=== PATIENT | male | born 1990 | race Caucasian/White ===

== ENCOUNTER 2021-09-21 17:34 | Inpatient (IN) | payer OTHER ==
[~2021-09-21] VITALS: Ht 172.7 cm; Wt 178.7 kg
[2021-09-21] MEDS ORDERED: SODIUM CHLORIDE 0.9% 1,000 ML IV ONE (21:00)
[2021-09-21 21:22] LABS: HEMATOCRIT. 30.4 % (42.0-52.0); HEMOGLOBIN. 10.2 g/dL (14.0-18.0); MEAN CORPUSCULAR HEMOGLOBIN 27.6 pg (28.0-32.0); MEAN PLATELET VOLUME 6.6 fl (7.4-10.4); PLATELET 437 x1000/uL (130-400); RED CELL DISTRIBUTION WIDTH 14.3 % (11.6-14.6)
[2021-09-21 21:27] LABS: CHLORIDE 98 mEq/L (98-107)
[2021-09-21 21:38] LABS: CREATINE KINASE MB FRACTION < 1.0 ng/mL (0.5-3.6)
[2021-09-21 21:43] LABS: PLATELET ESTIMATE INCREASED
[2021-09-21] MEDS ORDERED: CEFTRIAXONE 1 G PREMIX 50 ML IV ONE (22:15)
[2021-09-22] MEDS ORDERED: HALOPERIDOL LACTATE 5MG/ML VIAL IM ONE (03:30)
[2021-09-22] MEDS ORDERED: IOHEXOL-350 100 ML BOTTLE ONE (05:28)
[2021-09-22 05:42] LABS: CLARITY URINE CLOUDY (CLEAR); COLOR URINE DARK YELLOW (YELLOW); KETONES URINE NEGATIVE (NEGATIVE); LEUKOCYTE ESTERASE URINE 2+ (NEGATIVE); NITRITE URINE NEGATIVE (NEGATIVE); OCCULT BLOOD URINE TRACE (NEGATIVE); PH URINE 5.5 (4.5-8.0); PROTEIN URINE 1+ (NEGATIVE); SPECIFIC GRAVITY URINE 1.018 (1.005-1.030)
[2021-09-22 06:15] VITALS: BP_SYST 148; BP_SYST 153; BP_DIAS 76; BP_DIAS 90
[2021-09-22 08:00] VITALS: BP 120/63
[2021-09-22] MEDS ORDERED: POTASSIUM CHLORIDE 20MEQ TABLET SR PO SCH (08:00)
[2021-09-22] MEDS ORDERED: PIPERACILLIN/TAZOBACTAM 3.375 G in DEXTROSE 5% WATER 50 ML IV SCH (10:00)
[2021-09-22] MEDS ORDERED: INFLUENZA VACCINE 05/PF 0.5 ML SYRINGE IM ONE (11:00)
[2021-09-22] MEDS ORDERED: VANCOMYCIN 2,000 MG in DEXT 5% WATER 500 ML IV SCH (11:00)
[2021-09-22 12:00] VITALS: BP 127/79
[2021-09-22] MEDS ORDERED: PNEUMOCOCCAL 23-VAL P-SAC VAC 0.5 ML IM ONE (12:00)
[2021-09-22] MEDS: PIPERACILLIN/TAZOBACTAM 3.375 G in DEXTROSE 5% WATER 50 ML IV SCH ×2 (13:51→22:00)
[2021-09-22 16:00] VITALS: BP 108/66
[2021-09-22] MEDS: VANCOMYCIN 1250MG in DEXTROSE 5% WATER 250ML IV SCH (18:36)
[2021-09-22 20:29] LABS: INR 1.2; PROTHROMBIN TIME 12.9 sec (9.6-11.0)
[2021-09-22 20:33] VITALS: BP 139/81
[2021-09-22] MEDS ORDERED: ACETAMINOPHEN 325MG TABLET PO PRN (21:00)
[2021-09-22] MEDS: ENOXAPARIN 40MG/0.4ML SYR SUBCUT SCH (21:00)
[2021-09-23] VITALS (7 sets, daily range): BP systolic 105–129; BP diastolic 57–101
[2021-09-23] MEDS ORDERED: VANCOMYCIN 1G PREMIX 200 ML IV SCH (02:00)
[2021-09-23] MEDS: VANCOMYCIN 1250MG in DEXTROSE 5% WATER 250ML IV SCH ×3 (02:00→18:41)
[2021-09-23] MEDS: PIPERACILLIN/TAZOBACTAM 3.375 G in DEXTROSE 5% WATER 50 ML IV SCH ×3 (06:42→20:34)
[2021-09-23 08:15] LABS: HEMATOCRIT. 29.1 % (42.0-52.0); HEMOGLOBIN. 9.7 g/dL (14.0-18.0); MEAN CORPUSCULAR HEMOGLOBIN 27.4 pg (28.0-32.0); MEAN PLATELET VOLUME 6.7 fl (7.4-10.4); PLATELET 411 x1000/uL (130-400); RED BLOOD CELL COUNT 3.55 mill/uL (4.7-6.1); RED CELL DISTRIBUTION WIDTH 14.6 % (11.6-14.6)
[2021-09-23 08:53] LABS: CHLORIDE 101 mEq/L (98-107)
[2021-09-23] MEDS: ENOXAPARIN 40MG/0.4ML SYR SUBCUT SCH ×2 (09:00→20:34)
[2021-09-23] MEDS ORDERED: TEMAZEPAM 15MG CAPSULE PO PRN (09:30)
[2021-09-23] MEDS ORDERED: PROPOFOL 200MG/20ML VIAL IV ONE (10:06)
[2021-09-23] MEDS ORDERED: FENTANYL CITRATE/PF 50MCG/ML 2ML VIAL ONE (10:06)
[2021-09-23] MEDS ORDERED: MIDAZOLAM HCL 2 MG/2 ML VIAL ONE (10:07)
[2021-09-23] MEDS ORDERED: LIDOCAINE HCL/EPINEPHRINE 1%-EPI 1:100,000 30 ML VIAL INFIL ONE (10:11)
[2021-09-23] MEDS ORDERED: SIMETHICONE/SOD BICARB/CIT AC 1 EACH GRAN.EF.PK ONE (10:11)
[2021-09-23] MEDS ORDERED: SODIUM BICARBONATE 4% (2.4MEQ) 5ML VIAL IV ONE (10:12)
[2021-09-23] MEDS ORDERED: LIDOCAINE HCL 1% 30ML VIAL (10MG/ML) ONE (10:17)
[2021-09-23] MEDS ORDERED: DEXAMETHASONE 4MG/ML 1ML VIAL ONE (10:34)
[2021-09-23] MEDS ORDERED: ONDANSETRON HCL 4MG/2ML INJ ONE (10:34)
[2021-09-23] MEDS: FLUOXETINE HCL 10 MG CAPSULE PO SCH (11:00)
[2021-09-23] MEDS ORDERED: POTASSIUM CHLORIDE 20MEQ TABLET SR PO NR (12:30)
[2021-09-23 13:28] LABS: PLATELET ESTIMATE SLIGHTLY INCREASED
[2021-09-23] MEDS: RISPERIDONE 1MG TABLET PO SCH (20:34)
[2021-09-24] VITALS: BP 113/69
[2021-09-24 04:00] VITALS: BP 109/65
[2021-09-24] MEDS: VANCOMYCIN 1250MG in DEXTROSE 5% WATER 250ML IV SCH (06:39)
[2021-09-24] MEDS: PIPERACILLIN/TAZOBACTAM 3.375 G in DEXTROSE 5% WATER 50 ML IV SCH ×3 (06:39→22:47)
[2021-09-24 08:00] VITALS: BP 134/71
[2021-09-24 08:28] LABS: BASOPHILS % 0.5 % (0.0-2.0); EOSINOPHILS % 0.5 % (0.0-5.0); HEMATOCRIT. 27.9 % (42.0-52.0); HEMOGLOBIN. 9.4 g/dL (14.0-18.0); LYMPHOCYTES % 8.3 % (20.0-50.0); MEAN CORPUSCULAR HEMOGLOBIN 28.1 pg (28.0-32.0); MEAN CORPUSCULAR VOLUME 82.7 fL (80.0-94.0); MEAN PLATELET VOLUME 6.6 fl (7.4-10.4); NEUTROPHILS % 84.7 % (40.0-76.0); PLATELET 441 x1000/uL (130-400); RED BLOOD CELL COUNT 3.37 mill/uL (4.7-6.1); RED CELL DISTRIBUTION WIDTH 14.2 % (11.6-14.6)
[2021-09-24 08:29] LABS: CHLORIDE 101 mEq/L (98-107)
[2021-09-24] MEDS: RISPERIDONE 1MG TABLET PO SCH ×2 (09:57→21:06)
[2021-09-24] MEDS: FLUOXETINE HCL 10 MG CAPSULE PO SCH (09:57)
[2021-09-24] MEDS: ENOXAPARIN 40MG/0.4ML SYR SUBCUT SCH ×2 (09:58→21:06)
[2021-09-24] MEDS ORDERED: POTASSIUM CHLORIDE 20MEQ/PACKET PO NR (10:00)
[2021-09-24 12:00] VITALS: BP 136/76
[2021-09-24 16:00] VITALS: BP 151/71
[2021-09-24] MEDS: VANCOMYCIN 1GM PMX (XELLIA) 200 ML IV SCH (17:58)
[2021-09-24 20:00] VITALS: BP 124/69
[2021-09-25] VITALS (7 sets, daily range): BP systolic 108–137; BP diastolic 65–88
[2021-09-25] MEDS: VANCOMYCIN 1GM PMX (XELLIA) 200 ML IV SCH ×2 (01:05→09:13)
[2021-09-25] MEDS: PIPERACILLIN/TAZOBACTAM 3.375 G in DEXTROSE 5% WATER 50 ML IV SCH (06:09)
[2021-09-25] MEDS: ENOXAPARIN 40MG/0.4ML SYR SUBCUT SCH ×2 (09:12→21:13)
[2021-09-25] MEDS: FLUOXETINE HCL 10 MG CAPSULE PO SCH (09:12)
[2021-09-25] MEDS: RISPERIDONE 1MG TABLET PO SCH ×2 (09:12→21:12)
[2021-09-25] MEDS ORDERED: CEFTRIAXONE 2 G PREMIX 50 ML IV SCH (12:15)
[2021-09-25] MEDS ORDERED: LORAZEPAM 2MG/ML CPJ IV PRN (13:00)
[2021-09-25] MEDS: CEFTRIAXONE 2,000 MG in DEXTROSE 5% WATER 50 ML IV SCH (14:44)
[2021-09-26 04:00] VITALS: BP 123/82
[2021-09-26 07:06] LABS: HEMATOCRIT. 29.1 % (42.0-52.0); HEMOGLOBIN. 9.5 g/dL (14.0-18.0); MEAN CORPUSCULAR HEMOGLOBIN 27.3 pg (28.0-32.0); MEAN CORPUSCULAR VOLUME 83.3 fL (80.0-94.0); MEAN PLATELET VOLUME 6.5 fl (7.4-10.4); PLATELET 519 x1000/uL (130-400); RED BLOOD CELL COUNT 3.49 mill/uL (4.7-6.1); RED CELL DISTRIBUTION WIDTH 14.7 % (11.6-14.6)
[2021-09-26 08:00] VITALS: BP 114/75
[2021-09-26] MEDS: RISPERIDONE 1MG TABLET PO SCH ×2 (08:52→20:30)
[2021-09-26] MEDS: ENOXAPARIN 40MG/0.4ML SYR SUBCUT SCH ×2 (08:52→20:30)
[2021-09-26] MEDS: FLUOXETINE HCL 10 MG CAPSULE PO SCH (08:53)
[2021-09-26 12:00] VITALS: BP 133/75
[2021-09-26] MEDS ORDERED: IPRATROPIUM/ALBUTEROL 0.5-3(2.5)MG/3ML NEB HHN PRN (13:00)
[2021-09-26] MEDS: CEFTRIAXONE 2,000 MG in DEXTROSE 5% WATER 50 ML IV SCH (14:04)
[2021-09-26 14:36] LABS: BG BASE EXCESS -0.1 mmol/L (-2.0-2.0); BG CARBOXYHEMOGLOBIN 0.4 % (0.5-1.5); BG DEOXYHEMOGLOBIN 5.1 % (0.0-5.0); BG FRACTION INSPIRED OXYGEN 21; BG HCO3 ACT 23.5 mmol/L (22.0-26.0); BG METHEMOGLOBIN 0.1 % (0.0-1.5); BG OXYGEN SATURATION 94.9 % (92.0-98.5); BG OXYHEMOGLOBIN 94.4 % (94.0-97.0); BG PCO2 34.9 mmHg (35.0-45.0); BG PH 7.447 (7.350-7.450); BG PO2 71.8 mmHg (75.0-100.0); BG SAMPLE SITE RIGHT RADIAL; BG TOTAL HEMOGLOBIN 10.7 g/dL (12.0-18.0); BG VENT MODE ROOM AIR
[2021-09-26 16:00] VITALS: BP 120/77
[2021-09-26 20:00] VITALS: BP 114/79
[2021-09-26 20:50] LABS: PLATELET ESTIMATE INCREASED
[2021-09-26 23:49] VITALS: BP 129/83
[2021-09-27 04:00] VITALS: BP_SYST 124; BP_SYST 150; BP_DIAS 72; BP_DIAS 80
[2021-09-27 08:00] VITALS: BP 145/90
[2021-09-27] MEDS: RISPERIDONE 1MG TABLET PO SCH ×2 (08:26→20:22)
[2021-09-27] MEDS: ENOXAPARIN 40MG/0.4ML SYR SUBCUT SCH ×2 (08:26→20:22)
[2021-09-27] MEDS: FLUOXETINE HCL 10 MG CAPSULE PO SCH (08:26)
[2021-09-27 13:40] VITALS: BP 155/82
[2021-09-27 13:51] VITALS: BP 155/82
[2021-09-27] MEDS: CEFTRIAXONE 2,000 MG in DEXTROSE 5% WATER 50 ML IV SCH (13:57)
[2021-09-27 13:59] LABS: BASOPHILS % 0.8 % (0.0-2.0); HEMATOCRIT. 31.5 % (42.0-52.0); HEMOGLOBIN. 10.4 g/dL (14.0-18.0); LYMPHOCYTES % 8.5 % (20.0-50.0); MEAN CORPUSCULAR HEMOGLOBIN 27.3 pg (28.0-32.0); MEAN CORPUSCULAR VOLUME 82.6 fL (80.0-94.0); MEAN PLATELET VOLUME 6.3 fl (7.4-10.4); MONOCYTES % 5.8 % (2.0-8.0); NEUTROPHILS % 83.9 % (40.0-76.0); PLATELET 558 x1000/uL (130-400); RED BLOOD CELL COUNT 3.81 mill/uL (4.7-6.1); RED CELL DISTRIBUTION WIDTH 15.2 % (11.6-14.6)
[2021-09-27 14:07] LABS: CHLORIDE 105 mEq/L (98-107)
[2021-09-27 20:00] VITALS: BP 128/78
[2021-09-27] MEDS ORDERED: LEVO500T89 MT (20:54)
[2021-09-28] VITALS (7 sets, daily range): BP systolic 120–165; BP diastolic 64–90
[2021-09-28] MEDS: FLUOXETINE HCL 10 MG CAPSULE PO SCH (09:20)
[2021-09-28] MEDS: RISPERIDONE 1MG TABLET PO SCH ×2 (09:20→20:54)
[2021-09-28] MEDS: ENOXAPARIN 40MG/0.4ML SYR SUBCUT SCH ×2 (09:21→20:54)
[2021-09-28] MEDS ORDERED: CLONIDINE 0.1MG TABLET PO PRN (10:30)
[2021-09-28] MEDS: CEFTRIAXONE 2,000 MG in DEXTROSE 5% WATER 50 ML IV SCH (13:35)
[2021-09-29] VITALS: BP 118/81
[2021-09-29 04:00] VITALS: BP 122/83
[2021-09-29 08:00] VITALS: BP 110/64
[2021-09-29] MEDS: ENOXAPARIN 40MG/0.4ML SYR SUBCUT SCH (08:37)
[2021-09-29] MEDS: RISPERIDONE 1MG TABLET PO SCH (08:37)
[2021-09-29] MEDS: FLUOXETINE HCL 10 MG CAPSULE PO SCH (08:37)
[2021-09-29 12:00] VITALS: BP 127/82
[2021-09-29] MEDS: CEFTRIAXONE 2,000 MG in DEXTROSE 5% WATER 50 ML IV SCH (13:15)
[2021-09-29 13:40] VITALS: BP 127/88
== END 2021-09-29 15:10 | disposition home health service (06) | DRG 720 ==
LOC: ER 17:34 → MICUSO 09-22 01:22 → EDBEDREQSVC 09-22 01:47 → EDBEDREQTM 09-22 01:47 → EDBEDREQ 09-22 01:47 → EDBEDREQDT 09-22 01:47 → 7EST 09-22 03:43
PROVIDERS: ADMIT Internal Medicine; ATTEND Internal Medicine
PROC: 0T9030Z Drainage of Right Kidney with Drainage Device, Percutaneous Approach (ICD-10-PCS; principal; 2021-09-23)
DX: A41.51 Sepsis due to Escherichia coli [E. coli] (principal); E43 Unspecified severe protein-calorie malnutrition; J96.11 Chronic respiratory failure with hypoxia; N15.1 Renal and perinephric abscess; G93.1 Anoxic brain damage, not elsewhere classified; N17.9 Acute kidney failure, unspecified; K68.12 Psoas muscle abscess; D64.9 Anemia, unspecified; Z93.0 Tracheostomy status; E66.2 Morbid (severe) obesity with alveolar hypoventilation; E87.1 Hypo-osmolality and hyponatremia; E87.6 Hypokalemia; R62.50 Unspecified lack of expected normal physiological development in childhood; F84.0 Autistic disorder; F31.9 Bipolar disorder, unspecified; N39.0 Urinary tract infection, site not specified; Z20.822 Contact with and (suspected) exposure to COVID-19; F40.10 Social phobia, unspecified; F51.04 Psychophysiologic insomnia; Z71.3 Dietary counseling and surveillance; Z68.43 Body mass index [BMI] 50.0-59.9, adult
CPT/HCPCS: 36415; 36600; 71045; 71250; 71275; 73610; 73630; 74174; 74176; 77012; 80048; 80053; 80202; 81003; 82375; 82553; 82805; 83605; 83880; 84145; 84484; 85025; 85379; 86850; 86900; 87077; 87186; 87426; 87493; 90686; 90732; 93005; 93970; 99152; 99153; 99291; C1729; C1760; C1769; J0696; J1100; J1630; J1650; J2060; J2250; J2405; J2543; J2704; J3010; J3370; J3490; J7030; J7040; J7060; J7517; L8514; Q9967; A4315; G0500

== ENCOUNTER 2021-11-01 10:47 | Emergency (ER) | payer OTHER ==
[~2021-11-01] VITALS: Ht 170.2 cm; Wt 186.3 kg
[~2021-11-01 10:47] MED LIST: LEVO500T89 MT
[2021-11-01 11:28] VITALS: BP 119/85
[2021-11-01 13:16] LABS: CLARITY URINE TURBID (CLEAR); COLOR URINE YELLOW (YELLOW); KETONES URINE NEGATIVE (NEGATIVE); LEUKOCYTE ESTERASE URINE 3+ (NEGATIVE); NITRITE URINE POSITIVE (NEGATIVE); OCCULT BLOOD URINE 2+ (NEGATIVE); PH URINE 7.5 (4.5-8.0); PROTEIN URINE 2+ (NEGATIVE); SPECIFIC GRAVITY URINE 1.017 (1.005-1.030)
[2021-11-01] MEDS ORDERED: CEFTRIAXONE SODIUM 1 G/VIAL IM SCH (13:30)
[2021-11-01] MEDS ORDERED: LIDOCAINE HCL 1% 20ML VIAL (Pyxis) INJ INFIL SCH (13:30)
[2021-11-01] MEDS ORDERED: SULF1TAB48 PO (14:19)
[2021-11-01] MEDS ORDERED: FLUC150T5 PO (14:19)
== END 2021-11-01 15:06 | disposition home or self-care (01) ==
LOC: ER 12:38
DX: N39.0 Urinary tract infection, site not specified (principal); Z98.890 Other specified postprocedural states; Z93.0 Tracheostomy status
CPT/HCPCS: 81003; 87086; 96372; 99283; J0696; J3490

== ENCOUNTER 2021-11-18 23:01 | Emergency (ER) | payer MEDICAID, OTHER ==
[~2021-11-18] VITALS: Ht 167.6 cm; Wt 176.0 kg
[~2021-11-18 23:01] MED LIST changes: +FLUC150T5 PO; +SULF1TAB48 PO
[2021-11-19 05:16] LABS: BASOPHILS % 0.4 % (0.0-2.0); EOSINOPHILS % 1.4 % (0.0-5.0); HEMATOCRIT. 40.4 % (42.0-52.0); HEMOGLOBIN. 13.3 g/dL (14.0-18.0); MEAN CORPUSCULAR HEMOGLOBIN 28.9 pg (28.0-32.0); MEAN CORPUSCULAR VOLUME 87.9 fL (80.0-94.0); MEAN PLATELET VOLUME 7.2 fl (7.4-10.4); MONOCYTES % 4.9 % (2.0-8.0); NEUTROPHILS % 78.3 % (40.0-76.0); PLATELET 379 x1000/uL (130-400); RED CELL DISTRIBUTION WIDTH 16.4 % (11.6-14.6)
[2021-11-19 05:22] LABS: CHLORIDE 109 mEq/L (98-107)
[2021-11-19] MEDS ORDERED: SODIUM CHLORIDE 0.9% 1,000 ML IV ONE (09:00)
[2021-11-19 10:01] LABS: INR 1.1; PROTHROMBIN TIME 11.5 sec (9.6-11.0)
[2021-11-19 11:59] LABS: CLARITY URINE CLEAR (CLEAR); COLOR URINE YELLOW (YELLOW); KETONES URINE NEGATIVE (NEGATIVE); LEUKOCYTE ESTERASE URINE 1+ (NEGATIVE); NITRITE URINE NEGATIVE (NEGATIVE); OCCULT BLOOD URINE NEGATIVE (NEGATIVE); PROTEIN URINE TRACE (NEGATIVE); SPECIFIC GRAVITY URINE 1.017 (1.005-1.030); UROBILINOGEN URINE 0.2 E.U./dL (0.2-1.0)
[2021-11-19] MEDS ORDERED: CEFTRIAXONE 1 G PREMIX 50 ML IV ONE (12:30)
[2021-11-19 14:00] VITALS: BP 150/82
[2021-11-19] MEDS ORDERED: CEFTRIAXONE 1 G PREMIX 50 ML IV NR (15:00)
== END 2021-11-19 16:05 | disposition home or self-care (01) ==
LOC: ER 23:01
DX: T83.012A Breakdown (mechanical) of nephrostomy catheter, initial encounter (principal); Y82.8 Other medical devices associated with adverse incidents; R79.9 Abnormal finding of blood chemistry, unspecified; Y92.9 Unspecified place or not applicable; F84.0 Autistic disorder; F31.9 Bipolar disorder, unspecified; R56.9 Unspecified convulsions; G47.30 Sleep apnea, unspecified; Z93.0 Tracheostomy status
CPT/HCPCS: 36415; 74176; 80053; 81003; 83605; 85025; 85610; 87040; 87086; 87426; 96361; 96365; 99285; C9803; J0696; J7030

== ENCOUNTER 2022-01-06 13:41 | Emergency (ER) | payer OTHER ==
[~2022-01-06] VITALS: Ht 172.7 cm; Wt 137.0 kg
[~2022-01-06 13:41] MED LIST changes: +FLUC150T46 PO; -FLUC150T5 PO; -LEVO500T89 MT; +LEVO500T90 MT
[2022-01-06 18:10] VITALS: BP 129/84
[2022-01-06 20:26] LABS: CLARITY URINE CLEAR (CLEAR); COLOR URINE YELLOW (YELLOW); KETONES URINE NEGATIVE (NEGATIVE); LEUKOCYTE ESTERASE URINE 2+ (NEGATIVE); NITRITE URINE POSITIVE (NEGATIVE); OCCULT BLOOD URINE 1+ (NEGATIVE); PH URINE 5.5 (4.5-8.0); PROTEIN URINE 2+ (NEGATIVE); SPECIFIC GRAVITY URINE 1.016 (1.005-1.030); UROBILINOGEN URINE 0.2 E.U./dL (0.2-1.0)
[2022-01-06] MEDS ORDERED: LEVO750T46 PO (20:31)
== END 2022-01-06 21:43 | disposition home or self-care (01) ==
LOC: ER 13:41
DX: N39.0 Urinary tract infection, site not specified (principal); Z90.49 Acquired absence of other specified parts of digestive tract
CPT/HCPCS: 81003; 87077; 87186; 99283